=== PATIENT | male | born 1940 | race Caucasian/White ===

== ENCOUNTER → 2017-10-01 | Outpatient (CLI) | payer MEDICARE ==
[~2017-10-01] MED LIST: AMLO5TAB2 PO; ASPI81TA28 PO; FERR1TAB23 PO; MELO15TA10 PO; NIAC500T11 PO; NITR1CAP16 PO; OXYC-57 PO
--- NOTE | 2017-10-01 18:04 | DIAGNOSTIC IMAGING REPORT ---
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 There is a 1 cm right mid abdominal calcification likely representing a renal calculus. There are clustered calcifications projected over the right sacrum likely represent arterial calcifications. These remain stable. IMPRESSION: 1. No evidence of pathologic bowel dilatation 2. Right-sided nephrolithiasis, project over the level of the right renal pelvis/UPJ Electronically signed by: Wm Beasley M.D. 10/01/2017 6:02 PM Dictated Date/Time: 10/01/2017 6:00 PM
== END | disposition home or self-care (01) ==
LOC: C.RAD 17:36
PROVIDERS: ATTEND Urology
DX: N20.0 Calculus of kidney (principal); N40.1 Benign prostatic hyperplasia with lower urinary tract symptoms

== ENCOUNTER → 2017-10-08 | Outpatient (CLI) | payer MEDICARE ==
--- NOTE | 2017-10-08 11:56 | DIAGNOSTIC IMAGING REPORT ---
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 Abdomen and pelvis CT 09/08/2017. FINDINGS: The bowel gas pattern is unremarkable. There are no dilated loops of small bowel to suggest an obstruction. There is a right ureteral stent which appears be in good position. Calcifications overlying the distal aspect of the ureteral stent remains stable and likely represent vascular calcifications. No definite ureteral calculi. The renal shadows are mostly obscured by overlying bowel gas. No definite renal calculi. No pneumoperitoneum or pneumatosis. IMPRESSION: 1. The right ureteral stent appears in good position. 2. No definite renal or ureteral calculi. Electronically signed by: Hernandez Alvares M.D. 10/08/2017 11:55 AM Dictated Date/Time: 10/08/2017 11:53 AM
== END | disposition home or self-care (01) ==
LOC: C.RAD 11:22
PROVIDERS: ATTEND Urology
DX: N40.1 Benign prostatic hyperplasia with lower urinary tract symptoms (principal)